=== PATIENT | male | born 1965 | race Caucasian/White ===

== ENCOUNTER 2022-01-28 05:37 | Outpatient (CLI) | payer OTHER ==
[~2022-01-28] VITALS: Ht 18.2 cm; Wt 84.0 kg
[2022-01-29] MEDS ORDERED: FENT1PAT11 TD (15:13)
[2022-01-29] MEDS ORDERED: OMEP40CA6 PO (15:15)
[2022-01-29] MEDS ORDERED: TMSL.4C PO (15:15)
[2022-01-29] MEDS ORDERED: OXYC-556 PO (15:15)
[2022-01-29] MEDS ORDERED: ASPI81TA16 PO (15:15)
[2022-01-29] MEDS ORDERED: GBPN600T PO (15:15)
== END 2022-01-29 15:22 | disposition home or self-care (01) ==
LOC: PREOP 05:37
PROVIDERS: ATTEND Otolaryngology Otolaryngology/Facial Plastic Surgery
DX: Z01.818 Encounter for other preprocedural examination (principal)

== ENCOUNTER 2022-02-05 06:32 | Day surgery (SDC) | payer OTHER ==
[~2022-02-05] VITALS: Ht 182.9 cm; Wt 84.0 kg
[2022-02-05] VITALS (10 sets, daily range): BP systolic 102–131; BP diastolic 66–93
[~2022-02-05 06:32] MED LIST: ASPI81TA16 PO; FENT1PAT11 TD; GBPN600T PO; OMEP40CA6 PO; OXYC-556 PO; TMSL.4C PO
[2022-02-05] MEDS ORDERED: PHENYLEPHRINE 0.5% NASAL SPR (NEO-SYNEPHRINE) REG ONE (06:56)
[2022-02-05] MEDS ORDERED: LIDOCAINE/EPI 2% 1:200,00 (XYLOCAINE) 10 ML VIAL ONE ×2 (06:56→08:59)
[2022-02-05] MEDS ORDERED: COCAINE HCL 4% 2 ML SYR ONE (06:56)
[2022-02-05] MEDS: LACTATED RINGERS 1,000 ML IV PRN ×2 (07:00→08:58)
--- NOTE | 2022-02-05 07:12 | Progress Note-Pre Operative ---
Pre-Operative Progress Note H&P Reviewed The H&P was reviewed, patient examined and no changes noted. Date Seen by Provider: Feb 05, 2022 Time Seen by Provider: : Date H&P Reviewed: Feb 05, 2022 Time H&P Reviewed: :30 Pre-Operative Diagnosis: Devaited Nasal Septum, Bilat hYper of INf Turbs PEREZ CONCEPCION MD Feb 05, 2022 07:12
[2022-02-05 07:13] LABS: BASOPHILS # (AUTO) 0.1 10^3/uL (0.0-0.1); BASOPHILS % (AUTO) 1 % (0-10); EOSINOPHILS # (AUTO) 0.2 10^3/uL (0.0-0.3); EOSINOPHILS % (AUTO) 2 % (0-10); HEMATOCRIT 46 % (40-54); HEMOGLOBIN 15.4 g/dL (13.3-17.7); LYMPHOCYTES # (AUTO) 2.2 10^3/uL (1.0-4.0); LYMPHOCYTES % (AUTO) 24 % (12-44); MEAN CORPUSCULAR HEMOGLOBIN 30 pg (25-34); MEAN CORPUSCULAR HGB CONC 33 g/dL (32-36); MEAN CORPUSCULAR VOLUME 89 fL (80-99); MEAN PLATELET VOLUME 10.8 fL (9.0-12.2); MONOCYTES % (AUTO) 10 % (0-12); NEUTROPHILS # (AUTO) 5.8 10^3/uL (1.8-7.8); NEUTROPHILS % (AUTO) 63 % (42-75); PLATELET COUNT 222 10^3/uL (130-400); WHITE BLOOD COUNT 9.2 10^3/uL (4.3-11.0)
[2022-02-05] MEDS ORDERED: MIDAZOLAM 2 MG/2 ML (VERSED) VIAL IVP ONE (07:15)
[2022-02-05 07:28] LABS: POTASSIUM 3.6 MMOL/L (3.6-5.0)
[2022-02-05 07:29] LABS: CALCIUM 8.9 MG/DL (8.5-10.1)
[2022-02-05 07:33] LABS: CREATININE SERUM 0.91 MG/DL (0.60-1.30)
[2022-02-05] MEDS ORDERED: proPOfol 200 MG/20 ML (DIPRIVAN) VIAL IV ONE (07:56)
[2022-02-05] MEDS ORDERED: ROCURONIUM 50 MG/5 ML (ZEMURON) VIAL IV ONE (07:56)
[2022-02-05] MEDS ORDERED: MIDAZOLAM 2 MG/2 ML (VERSED) VIAL ONE (07:56)
[2022-02-05] MEDS ORDERED: ONDANSETRON 4 MG/2 ML (SDV) Z0FRAN ONE (07:56)
[2022-02-05] MEDS ORDERED: LIDOCAINE PF 2% 5 ML (XYLOCAINE) VIAL ONE (07:56)
[2022-02-05] MEDS ORDERED: fentaNYL INJ 100 MCG/2 ML AMP ONE (07:56)
--- NOTE | 2022-02-05 08:09 | Progress Note-Post Operative ---
Post-Operative Progess Note Surgeon (s)/Chiller Operator (s) Surgeon PEREZ CONCEPCION MD Chiller Operator n/a Pre-Operative Diagnosis Devaited Nasal Septum, Bilat hYper of INf Turbs Post-Operative Diagnosis same Post-Op Procedure Note Date of Procedure: Feb 05, 2022 Name of Procedure Performed: Nasal Septoplasty, Bilat Red of INf Turbinates Description & Findings Description and Findings: n/a Anesthesia Type get Estimated Blood Loss minimal Packing none. Specimen(s) collected/removed nasal; septum PEREZ CONCEPCION MD Feb 05, 2022 08:09
[2022-02-05] MEDS ORDERED: oxyCODONE/APAP 10/325MG (PERCOCET 10) TABLET PO PRN (08:15)
[2022-02-05] MEDS ORDERED: PROMETHAZINE INJ 25 MG/ML (PHENERGAN) AMP IVP PRN (08:15)
[2022-02-05] MEDS ORDERED: D5 1/2 NS W/KCL 20 MEQ/L 1,000 ML IV SCH (08:15)
[2022-02-05] MEDS ORDERED: PHENYLEPHRINE 100 MCG/ML 10 ML (ANESTHESIA) SYR ONE (08:30)
[2022-02-05] MEDS ORDERED: GLYCOPYRROLATE 0.2 MG/ML (ROBINUL) 2 ML VIAL ONE (09:11)
[2022-02-05] MEDS ORDERED: NEOSTIGMINE 3 MG/3 ML VIAL ONE (09:11)
[2022-02-05] MEDS ORDERED: SEVOFLURANE (ULTANE) 15 ML INHAL SOLN ONE (09:13)
[2022-02-05] MEDS ORDERED: ONDANSETRON 4 MG/2 ML (SDV) Z0FRAN IVP PRN (09:30)
[2022-02-05] MEDS ORDERED: MEPERIDINE (DEMEROL) INJ 50 MG/ML IVP ONE (09:30)
[2022-02-05] MEDS ORDERED: morphine INJ 10 MG/ML 1ML (SYR OR VIAL) IVP ONE (09:30)
[2022-02-05] MEDS ORDERED: HYDROmorphone 2 MG/ML VIAL (DILAUDID) IV ONE (09:30)
[2022-02-05] MEDS ORDERED: PROMETHAZINE INJ 25 MG/ML (PHENERGAN) AMP IVP ONE (09:30)
[2022-02-05] MEDS ORDERED: AMOX-355 PO (10:24)
--- NOTE | 2022-02-05 11:37 | Anesthesia-General Post-Op ---
General Patient Condition Mental Status/LOC: Same as Preop Cardiovascular: Satisfactory Nausea/Vomiting: Absent Respiratory: Satisfactory Pain: Controlled Complications: Absent Post Op Complications Complications None Follow Up Care/Instructions Patient Instructions None needed. Anesthesia/Patient Condition Patient Condition Patient is doing well, no complaints, stable vital signs, no apparent adverse anesthesia problems. No complications reported per nursing. NEVAEH ARMENTA CRNA Feb 05, 2022 11:37
== END 2022-02-05 12:07 ==
LOC: SDC 06:32
PROVIDERS: ATTEND Otolaryngology Otolaryngology/Facial Plastic Surgery
DX: J34.2 Deviated nasal septum (principal); J34.89 Other specified disorders of nose and nasal sinuses; J34.3 Hypertrophy of nasal turbinates; R09.81 Nasal congestion
CPT/HCPCS: 36415; 80048; 85025; 87081; 93005